=== PATIENT | male | born 1965 | race Caucasian/White ===

== ENCOUNTER 2020-06-07 17:57 | Emergency (ER) | payer BC, OTHER ==
[~2020-06-07] VITALS: Ht 167.6 cm; Wt 70.5 kg
[2020-06-07 19:36] VITALS: BP 137/86
== END 2020-06-07 19:50 | disposition home or self-care (01) ==
LOC: ED 19:44
DX: S93.492A Sprain of other ligament of left ankle, initial encounter (principal); W01.0XXA Fall on same level from slipping, tripping and stumbling without subsequent striking against object, initial encounter; Y93.89 Activity, other specified; Y92.89 Other specified places as the place of occurrence of the external cause; Y99.0 Civilian activity done for income or pay
CPT/HCPCS: 99283